=== PATIENT | male | born 1950 | race Caucasian/White ===

== ENCOUNTER 2017-02-28 11:20 | Emergency (ER) | payer MEDICARE, OTHER ==
[~2017-02-28] VITALS: Ht 175.3 cm; Wt 103.0 kg
[~2017-02-28 11:20] MED LIST: ACET1TAB40 PO; AMLO5TAB4 PO; HYDR-3498 PO; LOPE2CAP PO; ONDA4TAB35 PO; PANT40TA3 PO
[2017-02-28 11:26] VITALS: Ht 175.3 cm; Wt 103.0 kg
[2017-02-28] MEDS ORDERED: FLUT9.9S NASAL (12:42)
--- NOTE | 2017-02-28 12:46 | ERD ---
ER Documentation Chief Complaint Date/Time DATE: 02/28/17 TIME: 12:45 Chief Complaint hearing loss left ear x 10 days HPI 66-year-old male presents with 10 day history of decreased hearing in the left ear. Denies fevers, vomiting, shortness breath or chest pain, trauma, bleeding or discharge. ROS All systems reviewed and are negative except as per history of present illness. Medications Home Meds Active Scripts Fluticasone Propionate (Flonase Allergy Relief) 9.9 Ml [place].susp, 1 SPRAY NASAL BID for 10 Days, #1 BOTTLE TO EACH NOSTRIL Prov:JOHN ESTRADA MD 02/28/17 Hydrocodone Bit-Acetaminophen* (Banner*) 5-325 Mg Tab, 1 TAB PO Q6 Y for PAIN, # 10 TAB Prov:PAM GONSALEZ 02/16/16 Acetaminophen-Codeine* (Acetaminophen-Cod #3*) 300-30 Mg Tab, 1 TAB PO Q4H Y for PAIN, #10 TAB Prov:ALMA ROSA ADAME PA-C 10/22/15 Ondansetron Hcl* (Zofran* ODT) 4 mg -ODT Tab.disper, 4 MG PO Q6 Y for NAUSEA AND /OR VOMITING, #10 TAB Prov:LAMA ROSA ADAME PA-C 10/22/15 Loperamide Hcl* (Imodium*) 2 Mg Capsule, 2 MG PO .AFTER EA LOOSE BM Y for DIARRHEA, #10 TAB Prov:ALMA ROSA ADAME PA-C 10/22/15 Pantoprazole* (Protonix*) 40 Mg Tablet.dr, 40 MG PO DAILY, #20 TAB Prov:ERNESTINA FLORES MD 08/06/15 Reported Medications Amlodipine Besylate* (Norvasc*) 5 Mg Tablet, 5 MG PO DAILY, TAB 08/06/15 Allergies Allergies: Coded Allergies: No Known Allergy (Unverified , 02/16/16) PMhx/Soc History of Surgery: Yes (R inguinal hernia) Anesthesia Reaction: No Hx Neurological Disorder: No Hx Respiratory Disorders: No Hx Cardiac Disorders: Yes (HTN) Hx Psychiatric Problems: No Hx Miscellaneous Medical Probl: No Hx Alcohol Use: No Hx Substance Use: No Hx Tobacco Use: No Smoking Status: Former smoker Physical Exam Vitals Vital Signs Date Time Temp Pulse Resp B/P Pulse Ox O2 Delivery O2 Flow Rate FiO2 02/28/17 11:26 98.3 81 18 147/87 98 Physical Exam Const: [] Letter, [id number] per Head: Atraumatic Eyes: Normal Conjunctiva ENT: Normal External Ears, Nose and Mouth. Clear fluid and decreased light reflex bilaterally. Left ear impacted cerumen. No pain with passive range of motion. Neck: Full range of motion..~ No meningismus. Resp: Clear to auscultation bilaterally Cardio: Regular rate and rhythm, no murmurs Abd: Soft, non tender, non distended. Normal bowel sounds Skin: No petechiae or rashes Back: No midline or flank tenderness Ext: No cyanosis, or edema Neur: Awake and alert Psych: Normal Mood and Affect Procedures/MDM Left ear lavage was performed. TM appeared with clear fluid decreased light reflex bilaterally. Patient presents with decreased hearing left ear with signs of cerumen impaction treated. He may have eustachian tube dysfunction as well. We will treat with Flonase and further observation at home. Is no evidence of mastoiditis, additional emergent causes of presenting complaints. The patient was stable with no new complaints during the ER course. Clinically, there is no current evidence to suggest meningitis, sepsis, acute abdomen, pneumonia, acute coronary syndrome, pulmonary embolism, or any other emergent condition appearing to require further evaluation or hospitalization. The patient should certainly return for any new or worsening symptoms per the aftercare instructions. They should otherwise follow-up with her primary care doctor for reevaluation this week. Disclaimer: Inadvertent spelling and grammatical errors are likely due to EHR/ dictation software use and do not reflect on the overall quality of patient care. Also, please note that the electronic time recorded on this note does not necessarily reflect the actual time of the patient encounter. Departure Diagnosis: Primary Impression: Eustachian tube dysfunction Laterality: bilateral Qualified Code: H69.83 - Eustachian tube dysfunction, bilateral Condition: Stable Patient Instructions: Ear Wax, Treated, Eustachian Tube Obstruction (Child) Additional Instructions: Cheque otro vez con catherine doctor primario en el proximo de jesus or regresa para mas o nueva simptomas. JOHN ESTRADA MD Feb 28, 2017 12:46
== END 2017-02-28 12:52 | disposition home or self-care (01) ==
LOC: FTE 11:20
DX: H69.83 Other specified disorders of Eustachian tube, bilateral (principal); I10 Essential (primary) hypertension; Z87.891 Personal history of nicotine dependence
CPT/HCPCS: 99283

== ENCOUNTER 2017-03-05 19:33 | Emergency (ER) | payer MEDICARE, OTHER ==
[~2017-03-05] VITALS: Ht 182.9 cm; Wt 102.5 kg
[~2017-03-05 19:33] MED LIST changes: +ALBU8.5H5 INH; +FLUT9.9S NASAL; +LISI20TA11 PO; +PRED20TA PO
[2017-03-05 19:35] VITALS: Ht 182.9 cm; Wt 102.5 kg
[2017-03-05] MEDS ORDERED: LORA10CA PO (19:55)
--- NOTE | 2017-03-05 23:19 | ERD ---
ER Documentation Chief Complaint Date/Time DATE: 03/05/17 TIME: 23:12 Chief Complaint let ear pain x 1 week HPI 66-year-old male coming in complaining of ringing in his left ear for 1 week. Patient denies any traumatic injury. He states he was seen here a few weeks ago and had ear lavage performed. Patient states he has some mild pressure on the left sinus. Denies fever. Denies nasal drainage. Denies blood or drainage from his left ear. Denies headaches vomiting or fevers. ROS All systems reviewed and are negative except as per history of present illness. Medications Home Meds Active Scripts Loratadine* (Claritin*) 10 Mg Capsule, 10 MG PO DAILY, #30 CAP Prov:SHAWNEE MAIER PA-C 03/05/17 Fluticasone Propionate (Flonase Allergy Relief) 9.9 Ml [place].susp, 1 SPRAY NASAL BID for 10 Days, #1 BOTTLE TO EACH NOSTRIL Prov:JOHN ESTRADA MD 02/28/17 Hydrocodone Bit-Acetaminophen* ([place]*) 5-325 Mg Tab, 1 TAB PO Q6 Y for PAIN, # 10 TAB Prov:PAM GONSALEZ 02/16/16 Acetaminophen-Codeine* (Acetaminophen-Cod #3*) 300-30 Mg Tab, 1 TAB PO Q4H Y for PAIN, #10 TAB Prov:ALMA ROSA ADAME PA-C 10/22/15 Ondansetron Hcl* (Zofran* ODT) 4 mg -ODT Tab.disper, 4 MG PO Q6 Y for NAUSEA AND /OR VOMITING, #10 TAB Prov:ALMA ROSA ADAME PA-C 10/22/15 Loperamide Hcl* (Imodium*) 2 Mg Capsule, 2 MG PO .AFTER EA LOOSE BM Y for DIARRHEA, #10 TAB Prov:ALMA ROSA ADAME PA-C 10/22/15 Pantoprazole* (Protonix*) 40 Mg Tablet.dr, 40 MG PO DAILY, #20 TAB Prov:ERNESTINA FLORES MD 08/06/15 Reported Medications Amlodipine Besylate* (Norvasc*) 5 Mg Tablet, 5 MG PO DAILY, TAB 08/06/15 Allergies Allergies: Coded Allergies: No Known Allergy (Unverified , 02/16/16) PMhx/Soc History of Surgery: Yes (R inguinal hernia) Anesthesia Reaction: No Hx Neurological Disorder: No Hx Respiratory Disorders: No Hx Cardiac Disorders: Yes (HTN) Hx Psychiatric Problems: No Hx Miscellaneous Medical Probl: No Hx Alcohol Use: No Hx Substance Use: No Hx Tobacco Use: No Smoking Status: Never smoker Physical Exam Vitals Vital Signs Date Time Temp Pulse Resp B/P Pulse Ox O2 Delivery O2 Flow Rate FiO2 03/05/17 19:35 98.2 79 20 143/92 98 Physical Exam GENERAL: The patient is well-appearing, well-nourished, in no acute distress HEENT: Atraumatic. Conjunctivae are pink. Pupils equal, round, and reactive to light. There is no scleral icterus. Tympanic membranes clear bilaterally. Oropharynx clear. No nystagmus or photophobia. NECK: C-spine is soft and supple. There is no meningismus. There is no cervical lymphadenopathy. No JVD. No bruits. No goiter. CHEST: Clear to auscultation bilaterally. There are no rales, wheezes or rhonchi. HEART: Regular rate and rhythm. No murmurs, clicks, rubs or gallops. No S3 or S4. Procedures/MDM MDM: Patient did not have abnormal findings seen within the left ear canal. I have low suspicion for cerumen impaction. Patient had normal neuro exam, I have low suspicion for neurodeficit. Patient likely has tinnitus. I will give decongestant to help possibly alleviate congestion. I have low suspicion for meningitis or sepsis. Patient is recommended to follow-up with primary care physician within 1-2 days with for close evaluation. All other questions answered at time of discharge. Departure Diagnosis: Primary Impression: Tinnitus Condition: Stable Patient Instructions: Tinnitus (Ringing in the Ears) Additional Instructions: FOLLOW UP WITH YOUR PRIMARY CARE PHYSICIAN TOMORROW.Return to this facility if you are not improving as expected. SHAWNEE MAIER PA-C Mar 05, 2017 23:19
== END 2017-03-05 20:00 | disposition home or self-care (01) ==
LOC: FTE 19:33
DX: H93.12 Tinnitus, left ear (principal); I10 Essential (primary) hypertension
CPT/HCPCS: 99283